=== PATIENT | female | born 1980 | race Native Hawaiian/Other Pacific Islander ===

== ENCOUNTER 2021-04-05 10:04 | Outpatient (CLI) | payer OTHER | END 2021-04-05 20:10 | disposition home or self-care (01) | LOC: CT 10:04 | PROVIDERS: ATTEND Internal Medicine Gastroenterology | DX: R10.812 Left upper quadrant abdominal tenderness (principal); R10.32 Left lower quadrant pain | CPT/HCPCS: Q9963 ==

== ENCOUNTER → 2021-04-28 | Outpatient (CLI) | payer OTHER | END | disposition home or self-care (01) | LOC: LABW 10:23 | PROVIDERS: ATTEND Internal Medicine Gastroenterology | DX: R13.12 Dysphagia, oropharyngeal phase (principal); R11.2 Nausea with vomiting, unspecified; R10.12 Left upper quadrant pain; Z11.52 Encounter for screening for COVID-19 | CPT/HCPCS: 80053; 85027; 87635; U0003 ==

== ENCOUNTER → 2021-07-03 | Outpatient (CLI) | payer OTHER ==
[2021-04-28 10:56] LABS: PLATELET COUNT 264 K/uL (152-353)
[2021-04-28 11:18] LABS: POTASSIUM 4.1 mmol/L (3.6-5.2)
[2021-07-03 09:28] LABS: PLATELET COUNT 199 K/uL (152-353)
[2021-07-03 09:48] LABS: POTASSIUM 3.8 mmol/L (3.6-5.2)
== END | disposition home or self-care (01) ==
LOC: OR 04-28 10:00 → LABW 09:00 → OR 09:00 → EDSTATUS 07-05 09:00 → OR 07-05 12:35
PROVIDERS: ATTEND Internal Medicine Gastroenterology
DX: R13.12 Dysphagia, oropharyngeal phase (principal); R11.2 Nausea with vomiting, unspecified; R10.12 Left upper quadrant pain; Z11.52 Encounter for screening for COVID-19
CPT/HCPCS: 80053; 85027; 87635; U0003